=== PATIENT | male | born 1945 | race Caucasian/White ===

== ENCOUNTER 2017-07-09 09:18 | Emergency (ER) | payer OTHER ==
[2017-07-09 09:23] VITALS: TEMP 98.6; O2SAT 95
--- NOTE | 2017-07-09 10:11 | EDPHY ---
H & P Time Seen by Provider: 07/09/17 09:44 HPI/ROS: CHIEF COMPLAINT: Right elbow pain and swelling HISTORY OF PRESENT ILLNESS: 72-year-old male presents to the emergency department with pain and swelling to his right elbow. The patient's thinks about 5 days ago he may have hit it on the corner of a wall. He now has pain and swelling. His pain is especially worse with movement. He denies numbness or tingling in his fingers, pain in his right wrist. He does feel that the pain is radiating down into his forearm and up into his right humerus. No fevers or chills. No other known trauma. He is right-hand dominant. ROS: Denies numbness or tingling in his fingers, fevers, chills, axillary lymphadenopathy. Past Medical/Surgical History: Type 2 diabetic, hypertension, anxiety, dyslipidemia, gout x1 in his great toe Social History: and lives in [place] Smoking Status: Former smoker Physical Exam: Examination the right elbow reveals swelling. No abrasions. It is warm to the touch in diffusely tender to the touch. It is erythematous. He is holding his right elbow in 90 degrees of flexion for comfort. Unable to fully extend his right elbow secondary to pain. He is able to fully supinate. He has normal sensation to light touch with normal 2 point discrimination. Strong radial pulse at the right wrist. No right axillary lymphadenopathy. Nontender to palpate the right humerus or right wrist. No lymphangitis. Constitutional: Initial Vital Signs Temperature (C) 37.0 C 07/09/17 09:21 Heart Rate 100 07/09/17 09:21 Respiratory Rate 18 07/09/17 09:21 Blood Pressure 109/87 H 07/09/17 09:21 O2 Sat (%) 95 07/09/17 09:21 O2 Delivery Mode Room Air Allergies/Adverse Reactions: amoxicillin [Amoxicillin] Allergy (Unknown, Verified 03/01/14 11:31) Home Medications: Medication Instructions Recorded ATENOLOL 07/20/10 Xanax 07/20/10 Zoloft 07/20/10 oxyCODONE/APAP 5/325 [Percocet 1 - 2 tab PO Q4-6PRN PRN #20 tab 03/01/14 5/325 (RX)] Cephalexin [Keflex] 500 mg PO QID #28 cap 07/09/17 Lipitor 07/09/17 Metformin 1000 mg 07/09/17 MDM/Departure - MDM Imaging Results: Imaging Impressions Elbow X-Ray 07/09/17 09:25 Impression: Possible avulsion of a bony exostosis off the olecranon process. Small radiopaque foreign object in the anterior soft tissues of the distal arm. Procedures: Patient was placed in long-arm Ortho Glass splint and sling and examined post application in good placement with normal [employer]. ED Course/Re-evaluation: 72-year-old male presents emergency department with right elbow pain. He thinks that he may have bumped the right elbow on the corner of a wall. There is no abrasion or puncture wound noted. I was concerned about possible associated infection. It is warm, swollen, and erythematous. The patient has had gout in the past however only in his great toe and only once. The patient had x-rays obtained of the right elbow which reveal possible avulsion fracture off the olecranon. The patient will be immobilized. He will be treated with antibiotics for possible cellulitis. He was also encouraged take anti-inflammatory such as ibuprofen for possible gout. He was given referral to orthopedic surgeon. I do not think this patient is septic joint. He is afebrile. He does not have pain with small passive range of motion. He is able to fully supinate his right elbow. Unable to fully extend his right elbow secondary to pain. - Depart Disposition: Home, Routine, Self-Care Clinical Impression: Avulsion fracture right elbow Cellulitis Qualifiers: Site of cellulitis: extremity Site of cellulitis of extremity: upper extremity Laterality: right Qualified Code(s): L03.113 - Cellulitis of right upper limb Condition: Good Instructions: Elbow Fracture (ED), Cellulitis (ED) Additional Instructions: Keflex 500 mg 4 times daily for 1 week. Ibuprofen 600 mg every 8 hours as needed for pain. Keep splint on until follow-up with orthopedic surgeon. Prescriptions: Cephalexin [Keflex] 500 mg PO QID #28 cap Referrals: Maureen Beach MD [Medical Doctor] - 1-2 days without fail (Orthopedic surgeon on- call)
[2017-07-09 11:01] VITALS: BP 129/89; PULSE 84; RESP 16
== END 2017-07-09 11:37 | disposition home or self-care (01) ==
DX: S42.401A Unspecified fracture of lower end of right humerus, initial encounter for closed fracture (principal); L03.113 Cellulitis of right upper limb; I10 Essential (primary) hypertension; E11.9 Type 2 diabetes mellitus without complications; Z87.891 Personal history of nicotine dependence; Z79.84 Long term (current) use of oral hypoglycemic drugs; W22.01XA Walked into wall, initial encounter
CPT/HCPCS: 73080; 99283; A4565

== ENCOUNTER → 2018-12-21 | Outpatient (CLI) | payer OTHER | LOC: EDSTATUS 13:28 → GIMAGING 15:10 | PROVIDERS: ATTEND Family Medicine | DX: R07.81 Pleurodynia (principal) | CPT/HCPCS: 71101-PO ==